=== PATIENT | female | born 1965 | race Two or more races ===

== ENCOUNTER 2019-09-23 13:50 | Outpatient (CLI) | payer BC | END 2019-09-23 13:51 | disposition home or self-care (01) | LOC: COV 13:50 | PROVIDERS: ATTEND Family Medicine | DX: R50.9 Fever, unspecified (principal) | CPT/HCPCS: 81599 ==

== ENCOUNTER 2020-04-07 12:44 | Emergency (ER) | payer BC ==
[2020-04-07 13:12] LABS: MUDS CUTOFF CONCENTRATIONS CUTOFF CONC BELOW:
[2020-04-07 13:21] LABS: BILIRUBIN,URINE NEGATIVE (NEGATIVE); CLARITY,URINE CLEAR (CLEAR); GLUCOSE, URINE (UA) NEGATIVE (NEGATIVE); KETONES,URINE (UA) 40 mg/dL (NEGATIVE); LEUKOCYTE ESTERASE, URINE NEGATIVE (NEGATIVE); NITRITE,URINE NEGATIVE (NEGATIVE); OCCULT BLOOD,URINE SMALL (NEGATIVE); PH,URINE 7.5 PH (5.0-7.5); PROTEIN,URINE NEGATIVE (NEGATIVE); UROBILINOGEN,URINE 0.2 (NORMAL) E.U./dL (NORMAL)
[2020-04-07 13:21] LABS: BASOPHILS % (AUTO) 0.2 %; EOSINOPHILS % (AUTO) 0.2 %; HGB - HEMOGLOBIN 13.7 g/dL (12.0-16.0); LYMPHOCYTES # (AUTO) 1.4 10^3/uL (1.5-3.5); LYMPHOCYTES % (AUTO) 26.9 %; MEAN CORPUSCULAR HEMOGLOBIN 32.7 pg (27.0-31.0); MEAN CORPUSCULAR HGB CONC 34.1 g/dL (32.0-36.0); MEAN CORPUSCULAR VOLUME 95.9 fL (81.0-99.0); MEAN PLATELET VOLUME 9.8 fL (7.9-10.8); MONOCYTES # (AUTO) 0.3 10^3/uL (0.0-1.0); NEUTROPHILS # (AUTO) 3.4 10^3/uL (1.5-6.6); NEUTROPHILS % (AUTO) 67.5 %; PLT - PLATELET COUNT 286 10^3/uL (130-450); RED BLOOD COUNT 4.19 10^6/uL (4.20-5.40); RED CELL DISTRIBUTION WIDTH 12.1 % (12.0-15.0)
[2020-04-07 13:28] LABS: ACETAMINOPHEN < 10 ug/mL (10-30); ALBUMIN 4.5 g/dL (3.2-5.5); ALBUMIN/GLOBULIN RATIO 1.4 (1.0-2.2); ALKALINE PHOSPHATASE 55 IU/L (42-121); ALT ALANINE AMINOTRANSFERASE 21 IU/L (10-60); AST ASPARTATE AMINOTRANSFERASE 20 IU/L (10-42); BILIRUBIN,TOTAL 0.7 mg/dL (0.2-1.0); BUN - BLOOD UREA NITROGEN 12 mg/dL (6-20); CALCIUM 9.4 mg/dL (8.5-10.3); CARBON DIOXIDE - CO2 25 mmol/L (21-32); CHLORIDE 101 mmol/L (101-111); CREATININE 0.6 mg/dL (0.4-1.0); GLUCOSE 98 mg/dL (70-100); LIPASE 26 U/L (22-51); SALICYLATE < 6.0 mg/dL; SODIUM 136 mmol/L (135-145); TOTAL PROTEIN 7.7 g/dL (6.7-8.2)
--- NOTE | 2020-04-07 13:28 | ED Physician Documentation ---
History of Present Illness - Stated complaint Stated Complaint: SI - Chief complaint Chief Complaint: MHE - History obtained from History obtained from: Patient - Additonal information Additional information: 55-year-old female is brought into the emergency department by her daughter for thoughts of suicide and depression. Both the patient and her daughter report that she has been depressed for many many years but has no history of hospitalizations or previous suicidal attempt or intent. Patient reports that she has been feeling more hopeless lately. Yesterday in the a.m. the daughter found knives in the bed which were removed. They also removed a gun from the house. Later in the afternoon the patient was asking the daughter where her gun was as she did not realize that it had been removed from the house. On exam in the room patient appears very tearful, she states that she does not want to but she no longer wants to feel the way that she does. She endorses tobacco but no illicit drugs. She reports that she typically has 1-2 drinks a night after work to relax. Any pertinent past medical history including hypertension or diabetes Pt's daughter Andree may be reached at [phone] Review of Systems Constitutional: reports: Reviewed and negative Nose: reports: Reviewed and negative Throat: reports: Reviewed and negative Cardiac: reports: Reviewed and negative Respiratory: reports: Reviewed and negative GI: reports: Reviewed and negative : reports: Reviewed and negative Skin: reports: Reviewed and negative Musculoskeletal: reports: Reviewed and negative Neurologic: reports: Reviewed and negative Psychiatric: reports: Depressed, Suicidal, Anxiety, Insomnia. denies: Homicid al, Hallucinations, Delusions PD PAST MEDICAL HISTORY - Allergies Allergies/Adverse Reactions: Allergies Allergy/AdvReac Type Severity Reaction Status Date / Time No Known Drug Allergies Allergy Verified 04/07/20 12:49 PD ED PE EXPANDED - General General: Alert, Anxious, Other (tearful and crying) - Neck Neck: Supple w/out meningeal sx. No: Adenopathy - Cardiac Cardiac: Regular Rate, Regular Rhythm, Radial strong equal, Cap refill < 2 sec - Respiratory Respiratory: Clear to ausultation tanisha. No: Distress, Labored - Abdomen Abdomen: Normal Bowel sounds. No: Tender to palpation - Neuro Neuro: Alert and Oriented X 3, CNII-XII intact - GCS Eye Opening: Spontaneous Motor: Obeys Commands Verbal: Oriented Total: 15 - Psych Psych: Depressed, Tearful, Withdrawn, Poor eye contact, Anxious (Depressed appearing tearful female who appears her stated age. She is wearing make-up but makes poor eye contact with the provider.) Results - Vitals Vitals: Vital Signs - 24 hr 04/07/20 04/07/20 12:49 18:37 Temperature 36.5 C 37.0 C Heart Rate 101 H 65 Respiratory 18 18 Rate Blood Pressure 187/94 H 130/79 O2 Saturation 99 100 Oxygen O2 Source Room air - EKG (time done) 1830 Rate: Rate (enter#) (68) Rhythm: NSR [place]: Normal Intervals: Normal AR QRS: Normal Ischemia: Normal ST segments Compare to prior EKG: Old EKG unavailable Computer interpretation: Agree with computer - Labs Labs: Laboratory Tests 04/07/20 04/07/20 04/07/20 13:01 13:05 13:05 WBC 5.0 RBC 4.19 L Hgb 13.7 Hct 40.2 MCV 95.9 MCH 32.7 H MCHC 34.1 RDW 12.1 Plt Count 286 MPV 9.8 Neut # (Auto) 3.4 Lymph # (Auto) 1.4 L [place] # (Auto) 0.3 Eos # (Auto) 0.0 Baso # (Auto) 0.0 Absolute Nucleated RBC 0.00 Nucleated RBC % 0.0 Sodium 136 Potassium 3.0 L Chloride 101 Carbon Dioxide 25 Anion Gap 10.0 BUN 12 Creatinine 0.6 Estimated GFR (MDRD) 105 Glucose 98 Calcium 9.4 Total Bilirubin 0.7 AST 20 ALT 21 Alkaline Phosphatase 55 Total Protein 7.7 Albumin 4.5 Globulin 3.2 Albumin/Globulin Ratio 1.4 Lipase 26 TSH Urine Color YELLOW Urine Clarity CLEAR Urine pH 7.5 Ur Specific [place] 1.020 Urine Protein NEGATIVE Urine Glucose (UA) NEGATIVE Urine Ketones 40 H Urine Occult Blood SMALL H Urine Nitrite NEGATIVE Urine Bilirubin NEGATIVE Urine Urobilinogen 0.2 (NORMAL) Ur Leukocyte Esterase NEGATIVE Urine RBC 0-5 Urine WBC 0-3 Ur Squamous Epith Cells MANY Squamous H Urine Bacteria None Seen Ur Microscopic Review INDICATED Urine Culture Comments NOT INDICATED Salicylates < 6.0 Urine Opiates Screen NEGATIVE Ur Oxycodone Screen NEGATIVE Urine Methadone Screen NEGATIVE Ur Propoxyphene Screen NEGATIVE Acetaminophen < 10 L Ur Barbiturates Screen NEGATIVE Ur Tricyclics Screen NEGATIVE Ur Phencyclidine Scrn NEGATIVE Ur Amphetamine Screen NEGATIVE U Methamphetamines Scrn NEGATIVE U Benzodiazepines Scrn NEGATIVE Urine Cocaine Screen NEGATIVE U Cannabinoids Screen NEGATIVE Ethyl Alcohol < 5.0 04/07/20 04/07/20 13:05 18:34 WBC RBC Hgb Hct MCV MCH MCHC RDW Plt Count MPV Neut # (Auto) Lymph # (Auto) [place] # (Auto) Eos # (Auto) Baso # (Auto) Absolute Nucleated RBC Nucleated RBC % Sodium Potassium 3.6 Chloride Carbon Dioxide Anion Gap BUN Creatinine Estimated GFR (MDRD) Glucose Calcium Total Bilirubin AST ALT Alkaline Phosphatase Total Protein Albumin Globulin Albumin/Globulin Ratio Lipase TSH 0.87 Urine Color Urine Clarity Urine pH Ur Specific [place] Urine Protein Urine Glucose (UA) Urine Ketones Urine Occult Blood Urine Nitrite Urine Bilirubin Urine Urobilinogen Ur Leukocyte Esterase Urine RBC Urine WBC Ur Squamous Epith Cells Urine Bacteria Ur Microscopic Review Urine Culture Comments Salicylates Urine Opiates Screen Ur Oxycodone Screen Urine Methadone Screen Ur Propoxyphene Screen Acetaminophen Ur Barbiturates Screen Ur Tricyclics Screen Ur Phencyclidine Scrn Ur Amphetamine Screen U Methamphetamines Scrn U Benzodiazepines Scrn Urine Cocaine Screen U Cannabinoids Screen Ethyl Alcohol PD MEDICAL DECISION MAKING - ED course Complexity details: reviewed old records, reviewed results, considered differential, d/w patient, d/w family ED course: 55-year-old female presents to the emergency department for thoughts of self- harm. She reports a longstanding history of depression but no psychiatric hospitalizations. In addition she is taking no prescribed medications and has not since her children were very very young. Yesterday her children found knives in her bedding and they also removed a gun from her possession. Patient later was asking about the whereabouts of the gun. - Patient's labs are reviewed in full. I do note a mild hypokalemia. 40 mEq of potassium has been ordered orally. However her urine tox and the rest of her labs are unremarkable. COVID 19 screening test is pending. She is medically cleared to be seen. I will request a telepsych consult. - I have spent booking with the telepsych provider. She does recommend voluntary inpatient hospitalization for depression and suicidal thoughts. She does however feel that if patient were to rescind her voluntary status she would meet the criteria for involuntary placement. She would recommend initiating fluoxetine tomorrow in the a.m. Over the course of the night and during her stay here in the ED she would also recommend as needed Ativan for anxiety. These findings and the plan were discussed with the patient and her daughter at the bedside. EKG is pending. We will also repeat her potassium as she was hypokalemic and repleted earlier - Repeat potassium is 3.6. Screening EKG unremarkable. Qtc 418. Pt is fully medically cleared and we are currently looking for voluntary inpatient psychiatric beds for SI/Depression. Nursing staff has informed me that voluntary beds are available at [facility] however they cannot accept the patient until she has a negative COVID-19 test which is pending Departure - Departure Clinical Impression: Suicidal intent Depression Qualifiers: Depression Type: major depressive disorder Major depression recurrence: unspecified whether recurrent Active/Remission status: currently active Major depression episode severity: severe Psychotic features: without psychotic features Qualified Code(s): F32.2 - Major depressive disorder, single episode, severe without psychotic features Condition: Stable Record reviewed to determine appropriate education?: Yes
[2020-04-07 13:30] LABS: BACTERIA,URINE None Seen /HPF (None Seen); RBC,URINE 0-5 /HPF (0-5); SQUAMOUS EPITHELIAL CELL,UR MANY Squamous (<= Few)
[2020-04-07 13:31] LABS: AMPHETAMINE SCREEN,URINE NEGATIVE (NEGATIVE); BENZODIAZEPINES SCREEN, URINE NEGATIVE (NEGATIVE); COCAINE SCREEN URINE NEGATIVE (NEGATIVE); METHADONE SCREEN, URINE NEGATIVE (NEGATIVE); METHAMPHETAMINES SCREEN, URINE NEGATIVE (NEGATIVE); OPIATE SCREEN, URINE NEGATIVE (NEGATIVE); OXYCODONE SCREEN, URINE NEGATIVE (NEGATIVE); PROPOXYPHENE SCREEN, URINE NEGATIVE (NEGATIVE); TRICYCLIC ANTIDEPRESSANT,URINE NEGATIVE (NEGATIVE)
[2020-04-07] MEDS ORDERED: POTASSIUM CHLORIDE 20 MEQ TABLET PO STA (14:12)
[2020-04-07] MEDS ORDERED: LORazepam 1 MG TABLET PO STA (18:10)
--- NOTE | 2020-04-07 18:11 | TELEPSYCH PHYS NOTE ---
[facility]IE[facility] COMPLAINT/HX OF PRESENT ILLNESS Cheif Complaint and History of Present Illness: Pt is a 55y/o female who came in with her daughter due to increased depression. Pt has had some suicidal thoughts and although she denied intent, daughter has caught her with knives and had to remove the gun from her home. PT had asked her daughter if she knew where the gun was and the daughter said she removed it. PT denied prior suicide attempts but admits to self harm by hitting higgins. She denied thoughts of harm to others or h/o violence. - SI/HI/SELF HARM SI/HI/SELF HARM (CURRENT OR HISTORY OF):: SI, Self Harm - VIOLENCE/LEGAL/COLLATERAL Violence - Legal - Collateral: Pt denied h/o violence or thoughts or harm to others. - PSYCHIATRIC HX/TREATMENT HX Psychiatric: Depression, Panic attacks Psychiatric/Treatment Hx Other: PT denied prior hospitalizations. She went to a psychiatrist in the past while going through a divorce. She was on medication she describes as possibly xanax but could not recall. She said she took it as needed and may only take a 1/4 pill. - DRUG/ALCOHOL HX Number: 3 Amount/day: Drinks/day Substance use/abuse/alcohol text: Patient admits to use of alcohol daily and a h/o blackouts. She denied DTs or sz. She denied h/o substance treatment - MEDICAL HX Does the pt have a hx of MRSA?: No Neurological History: None Eyes, Ears, Nose, Throat: None Cardiovascular: None Respiratory: None Skin: None Endocrine/Autoimmune: None Gastrointestinal: None Is Patient ?: No Urinary: None Musculoskeletal: None Blood Disorders: None PMH Other: PT describes daily headaches, a knot in the back of her neck. - HOME MEDICATIONS Home Meds (as last confirmed): none - ALLERGIES Allergies (as last confirmed): Allergies Allergy/AdvReac Type Severity Reaction Status Date / Time No Known Drug Allergies Allergy Verified 04/07/20 12:49 - FAMILY PSYCH/SUICIDE/SOCIAL HX-MENTAL Family - Suicide - Social Hx and Mental Status Exam: FH: PT said her mother had dementia. no substance issues or suicides SH: PT lives alone and is currently from her 2nd . SHe has 3 grown children who are supportive but don't live near other than her 19y/o who lives with her. She denied h/o trauma or abuse. Her kids are her main supports. 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 She did have a gun that her daughter had removed from her home. She denied legal issues. MSE: Pt presents tearful, with broken speech. Her mood was depressed with a congruent affect. Her thought process was linear. She did not appear manic or internally preoccupied. She denied endorse thoughts of suicide. NO homicidal thoughts. Insight and judgment were limited. Collateral: Pts older daughter was at her bedside and expressed concern for patients safety given that she was looking for her gun and she found knives by the patients pillow. She is in full support of inpatient care for safety. - PATIENT PROBLEM LIST (1) Major depression, recurrent Qualifiers: Active/Remission status: currently active Major depression episode severity: severe Psychotic features: without psychotic features Qualified Code(s): F33.2 - Major depressive disorder, recurrent severe without psychotic features Impression: Pt is a 55y/o hf with h/o untreated anxiety and depression who was brought in by her daughter due to safety concerns. PT has been overwhelmed by stress of finances, pending divorce and depressed mood with suicidal thoughts. Her daughter found knives by the patients pillow and removed her gun from the home. The patient was asking where her gun was and the daughter no longer feels patient can be safe. Pt admits to daily use of alcohol with some blackouts. She otherwise denied w/d sx or h/o substance treatment. She is perimenopausal but denied medical issues. Given current overwhelming stressors, reports of hopelessness and suicidal thoughts with gathering of knives and trying to get her gun, she presents an imminent danger and is in need of inpatient care for safety. HEr daughter provided collateral and is in hopes of inpatient care as well. - TREATMENT/PHARMACOLOGICAL RECOMMENDATION Treatment - Pharmacological - Therapy Recommendations: 1. Admit to inpatient psychiatry voluntarily, however, patient would meet involuntary commitment criteria should she refuse. 2. Ativan 0.5mg po qid prn severe anxiety 3. Start Prozac 20mg po am for depression 4. Melatonin 2mg po qhs for insomnia - TIME SPENT & PROVIDER LOCATION Telepsych consultation conducted via videoconferencing: Yes List names and roles of persons who participated in consult: Echo, patient daughter, Dr Duran Telepsych Provider Location: [place] Time Telepsych consult began: 20:50 Time Telepsych consult completed: 21:10
[2020-04-07] MEDS ORDERED: LORazepam 1 MG TABLET PO PRN (18:44)
[2020-04-08] MEDS ORDERED: FLUoxetine 10 MG CAPSULE PO SCH (09:00)
--- NOTE | 2020-04-08 09:06 | ED Physician Documentation ---
ED Addendum - Addendum Addendum: 04/08/20 09:06 Patient seen at bedside, we are awaiting a bed, potentially at [facility]. We are awaiting a Covid test. She has no specific complaints. 04/08/20 17:[address] Cheryl West by Dr. Cristhian Mcgrath, cobras were completed. She is stable for transport.
[2020-04-08 17:22] VITALS: BP 122/77
== END 2020-04-08 19:25 ==
LOC: ED 12:44
DX: F33.2 Major depressive disorder, recurrent severe without psychotic features (principal); R45.851 Suicidal ideations; F41.9 Anxiety disorder, unspecified; G47.00 Insomnia, unspecified; E87.6 Hypokalemia; Z20.828 Contact with and (suspected) exposure to other viral communicable diseases; F17.200 Nicotine dependence, unspecified, uncomplicated
CPT/HCPCS: 36415; 80320; 80329; 81001; 83690; 84132; 87635; 93005; 99283; 99285; A9270; J8499; 80053; 80306; 80307; 81003; 84443; 85025; 87086

== ENCOUNTER 2020-07-02 10:12 | Outpatient (CLI) | payer BC | END 2020-07-02 10:13 | disposition home or self-care (01) | LOC: DI 10:12 | PROVIDERS: ATTEND Physician Assistant | DX: R01.1 Cardiac murmur, unspecified (principal); I35.1 Nonrheumatic aortic (valve) insufficiency | CPT/HCPCS: 93306 ==